=== PATIENT | female | born 1980 | race Caucasian/White ===

== ENCOUNTER 2019-09-18 14:00 | Inpatient (IN) | payer BC, SELFPAY ==
[2019-09-18 15:33] LABS: #Basophils 0.1 thou/uL (0.0-0.2); #Monocytes 0.8 thou/uL (0.11-0.59); #Neutrophils 13.8 thou/uL (1.40-6.50); %Basophils 0.5 % (0.0-1.0); %Eosinophils 0.2 % (0.0-10.0); %Lymphocytes 11.8 % (21.0-51.0); %Monocytes 4.6 % (0.0-10.0); %Neutrophils 82.8 % (42.0-75.0); Hemoglobin 14.7 g/dL (12.0-16.0); Mean Corpuscular HGB CONC 34.5 g/dL (32.0-36.0); Mean Corpuscular Hemoglobin 32.1 pg (27.0-31.0); Mean Corpuscular Volume 93.3 fL (78.0-98.0); Mean Platelet Volume 6.8 fL (7.4-10.4); Platelet Count 267 thou/uL (130-400); RBC Distribution Width 11.9 % (11.5-14.5); Red Blood Cell (RBC) Count 4.58 mill/uL (4.20-5.40); White Blood Cell (WBC) Count 16.6 thou/uL (4.8-10.8)
[2019-09-18 15:54] LABS: Bilirubin Negative (Negative); Blood, Urine Negative (Negative); Clarity Clear (Clear); Glucose, Urine (Dipstick) Normal (Negative); Leukocyte Negative Leu/uL (Negative); Nitrite Negative (Negative); Protein, Urine (Dipstick) Negative (Neg-Trace); Urobilinogen Normal mg/dL (Less than 2)
[2019-09-18] MEDS ORDERED: Acetaminophen 500 MG TAB ONE (15:57)
[2019-09-18] MEDS ORDERED: diphenhydrAMINE 50 MG/ML VIAL ONE (15:57)
[2019-09-18 15:58] LABS: ALT (SGPT) 16 U/L (8-55); AST (SGOT) 13 U/L (5-34); Albumin 3.8 g/dL (3.5-5.0); Alkaline Phosphatase 42 U/L (40-110); Anion Gap 14 mmol/L (10-20); BUN (Urea Nitrogen) 12 mg/dL (7.0-18.7); Bilirubin, Total 0.2 mg/dL (0.2-1.2); Calc. Creatinine Clearance 0 mL/min (70-130); Calcium 9.4 mg/dL (7.8-10.44); Carbon Dioxide 23 mmol/L (22-29); Chloride 108 mmol/L (98-107); Estimated GFR-MDRD 85; Globulin 2.2 g/dL (2.4-3.5); Glucose 103 mg/dL (70-105); Potassium 4.5 mmol/L (3.5-5.1); Sodium 140 mmol/L (136-145)
[2019-09-18] MEDS ORDERED: Prochlorperazine 10 MG/2 ML VIAL IVP SCH (16:15)
--- NOTE | 2019-09-18 16:51 | CT ---
EXAM: Brain CTWithout contrast: HISTORY: Frontal headache nausea vomiting and blurry vision COMPARISON: 11/28/2017 FINDINGS: No focal mass or midline shift. No intra or extra-axial hemorrhage. Sinuses and mastoids are clear of acute process. IMPRESSION: No mass or bleed or other significant acute intracranial process. Stable exam.
[2019-09-18] MEDS ORDERED: Midazolam HCl 2 mg/2 ml Vial ONE (17:28)
[2019-09-18] MEDS ORDERED: Ondansetron PF 4 MG/2 ML Vial ONE ×2 (17:28→20:08)
[2019-09-18 18:54] LABS: Color Of CSF Supernatant COLORLESS (Colorless); Unspun CSF Color COLORLESS (Colorless)
[2019-09-18 18:55] LABS: Tube # 1
[2019-09-18 18:56] LABS: CSF Source CSF; Clarity Clear (Clear); Tube # 2
[2019-09-18 19:04] LABS: CSF Source CSF; Clarity Clear (Clear); Tube # 4
[2019-09-18 19:09] LABS: CSF, Glucose 70 mg/dl (40-70); CSF, Protein 60 mg/dL (15-40)
[2019-09-18] MEDS ORDERED: AcetaZOLAMIDE 250 MG TAB PO SCH (19:30)
[2019-09-18] MEDS ORDERED: Ketorolac Tromethamine 30 MG/ML VIAL ONE (20:08)
[2019-09-18] MEDS ORDERED: Ondansetron PF 4 MG/2 ML Vial IVP PRN ×2 (21:36→22:04)
[2019-09-18] MEDS ORDERED: Ondansetron ODT 4 MG TAB SL PRN (21:36)
[2019-09-18] MEDS ORDERED: Acetaminophen 325 MG TAB PO PRN (21:36)
[2019-09-18] MEDS ORDERED: Ondansetron ODT 4 MG TAB PO PRN (22:04)
[2019-09-18] MEDS: HYDROcodone/Acetaminophen 5/325 mg Tablet PO PRN (23:27)
[2019-09-19] MEDS: Nicotine 14 MG PATCH TD PRN ×2 (00:04→15:17)
[2019-09-19] MEDS: HYDROcodone/Acetaminophen 5/325 mg Tablet PO PRN ×2 (03:59→08:46)
[2019-09-19] MEDS: Acetaminophen 325 MG TAB PO PRN ×2 (08:45→13:50)
[2019-09-19] MEDS: clonazePAM 1 MG TAB PO SCH ×3 (08:46→20:34)
[2019-09-19] MEDS: lamoTRIgine 100 MG TAB PO SCH ×3 (08:47→20:35)
[2019-09-19] MEDS ORDERED: Metoclopramide HCl 10 MG/2 ML VIAL IVP SCH (10:15)
[2019-09-19] MEDS: AcetaZOLAMIDE 250 MG TAB PO SCH ×3 (10:47→20:35)
--- NOTE | 2019-09-19 10:50 | CON ---
DATE OF CONSULTATION: 09/19/2019 CONSULTING PHYSICIAN: Hospitalist Service. IMPRESSION: 1. Chronic migraines. 2. Questionable pseudotumor cerebri with insignificantly elevated pressure of 25. PLAN: 1. Lucas protocol. 2. Diamox 250 mg three times a day. 3. Ophthalmology evaluation next week and determine whether Diamox is necessary. HISTORY OF PRESENT ILLNESS: Ms. Atnhony is a 39-year-old woman with a past history of chronic migraines and bipolar disorder. She presented to [facility] with a persistent headache that had been going on for [address] scan of the brain was unremarkable. She had a lumbar puncture done, which showed an opening pressure of 25 cm of water. She was given the migraine protocol, but did not respond to it. She does not report any transient vision loss. She does complain of photophobia and sonophobia. She has been having some episodic nausea and vomiting as well. She took Tylenol prior to her admission. She has not ever taken any prescription migraine medications. PAST MEDICAL HISTORY: As listed above. ALLERGIES: NONE REPORTED. SOCIAL HISTORY: Unremarkable. FAMILY HISTORY: Unremarkable. REVIEW OF SYSTEMS: Ten-system review of systems is otherwise negative. PHYSICAL EXAMINATION: GENERAL: She is a slightly overweight middle-aged woman, who appears to be in mild discomfort. HEENT: Pupils are 3 mm and reactive. Funduscopic exam was attempted, but clear view of the optic nerve could not be obtained. Conjunctivae are clear. Oropharynx clear. NECK: Supple. EXTREMITIES: No cyanosis or edema. NEUROLOGIC: She is alert and appropriate. Her speech is fluent and clear. She has no focal deficits. No abnormal movements are present. LABORATORY STUDIES: Unremarkable. SUMMARY: This is a middle-aged woman with history of chronic migraines. She has had a persistent headache with nausea, vomiting, light and sound sensitivity more consistent with a migraine, then what would be a typical presentation for pseudotumor cerebri. Opening pressure of 25 is not significantly elevated. It can be seen under is under stress and duress. Apparently, it was difficult for her to be tapped. I will continue Diamox for now and treat her as a migraine. Job ID: [id number]
[2019-09-19] MEDS ORDERED: Sodium Chloride 0.9% 10 ML ONE (10:53)
[2019-09-19] MEDS: Dihydroergotamine Mesylate 1 MG/ML AMP SLOW IVP PRN ×3 (11:05→23:11)
[2019-09-19] MEDS ORDERED: Lorazepam 0.5 MG TAB PO PRN (11:28)
--- NOTE | 2019-09-19 13:08 | HP ---
PRIMARY CARE PROVIDER: Dr. Astrid Tee. CHIEF COMPLAINT: Headache. HISTORY OF PRESENT ILLNESS: Ms. Anthony is a pleasant 39-year-old lady who was seen at [facility] on September 19, 2019. She reports having headaches over the last one week. She also reports having headaches approximately 5 years ago after she received what appears to be intrathecal steroids. She required a blood patch at that time. Over the last week, she has had headache, frontal, radiating to occiput and down her neck, sharp, constant, 8/10 at its worst, accompanied by photophobia and phonophobia as well as blurry vision. She cannot recall any aggravating factors, but she had relief following lumbar puncture in the emergency room. She denies any vomiting. She denies any abdominal pain. She denies any weakness. REVIEW OF SYSTEMS: All systems were reviewed and found to be negative except for the pertinent positives mentioned above. PAST MEDICAL HISTORY: Hemochromatosis, chronic back and neck pain, migraine headaches. PAST SURGICAL HISTORY: Skin tumor removal, hysterectomy, and bone spur surgery. PSYCHIATRIC HISTORY: Bipolar disorder, ADHD, and PTSD. SOCIAL HISTORY: The patient smokes half a pack of cigarettes a day. She drinks alcohol occasionally. She denies recreational drug use. FAMILY HISTORY: Hypertension in her father and heart murmur in her brother. ALLERGIES: SULFA. CURRENT MEDICATIONS: 1. Aripiprazole 15 mg in the evening. 2. Buprenorphine/naloxone 8/2 mg sublingual film half dose three times a day. 3. Clonazepam 2 mg three times a day. 4. Lamotrigine 200 mg three times a day. 5. Prazosin 2 mg every evening. PHYSICAL EXAMINATION: GENERAL: On examination, Ms. Anthony is awake and alert, not in acute distress. She is obese, with a BMI of 35.3. VITAL SIGNS: Blood pressure is 121/71, pulse 60, respiratory rate 16, and oxygen saturation 94% on room air. She is afebrile. EYES: No scleral icterus. No conjunctival pallor. ENT: Moist mucosal membranes. No oropharyngeal erythema or exudates. NECK: Supple and nontender. Trachea is midline. RESPIRATORY: Accessory muscles of breathing are not active. Chest wall movements are symmetric bilaterally. LUNGS: Clear to auscultation without wheeze, rhonchi, or crepitations. CARDIOVASCULAR: S1 and S2 are heard, regular. Peripheral pulses palpable. ABDOMEN: Soft and nontender. Bowel sounds are heard. NEUROLOGIC: Cranial nerves 2 through 12 are intact. No focal motor or sensory deficits. Deep tendon reflexes 2+, plantars downgoing bilaterally. MUSCULOSKELETAL: Power is 5/5 in all 4 extremities. SKIN: No rashes. LYMPHATIC: No cervical lymphadenopathy. PSYCHIATRIC: Normal mood and normal affect. The patient is oriented to person, place, and time. LABORATORY DATA: Ms. Anthony's labs and investigations were reviewed. Noncontrast CT scan of the brain did not show any acute intracranial abnormality. She has leukocytosis with 16,600 white cells, of which 82.8% are neutrophils. Hemoglobin and platelet count are normal. Comprehensive metabolic profile is unremarkable. Urinalysis is negative for nitrite and leukocyte esterase. CSF studies are unremarkable. ASSESSMENT AND PLAN: Ms. Anthony is a pleasant 39-year-old lady who was seen at [facility] on September 19, 2019. Her problem list includes: 1. Intractable headache: Ms. Anthony is presenting with intractable headache that improved following lumbar puncture, raising the possibility of idiopathic intracranial hypertension. She has been started on Diamox. Alternatively, she could be having a variant of migraine. She is being treated with medications for migraine as well. I will obtain MRI of the brain to rule out any intracranial abnormality as the etiology for new onset intractable headache. 2. Attention deficit hyperactivity disorder: Continue home medications. Many thanks for allowing me to participate in your patient's care. Please feel free to contact me with any questions or concerns. LEVEL OF RISK: Moderate. LEVEL OF COMPLEXITY: Moderate. Job ID: [id number]
--- NOTE | 2019-09-19 13:47 | MRI ---
EXAM: Brain MRI Without contrast: HISTORY: Frontal headache, nausea and vomiting, blurred vision COMPARISON: Head CT 09/18/2019 FINDINGS: Multiplanar multisequence MRI examination of the brain is performed. The ventricles are within normal limits of size shape and position. No mass or midline shift. No evidence for intra or extra-axial hemorrhage. No evidence for abnormal restricted diffusion. No evidence for acute infarct. Normal-appearing flow voids are noted. The extracranial soft tissues and calvarial marrow signal appear within normal limits. Visualized sinuses and mastoids are unremarkable. IMPRESSION: No significant acute intracranial process. No mass or bleed. No acute infarct.
[2019-09-19] MEDS: Buprenorphine 8mg/Naloxone 2mg per 1 FILM PO SCH ×2 (15:31→20:36)
--- NOTE | 2019-09-19 16:09 | PDOC.BPN ---
- Brief Progress Note Received call from Dr. Meneses with [facility] to let us know that patient is being seen by Dr. Tee who we admit for. Since he had already seen patient it was decided H&P would be done by [facility] with a transfer of care to our service tomorrow.
[2019-09-19] MEDS: Metoclopramide HCl 10 MG/2 ML VIAL IVP PRN ×2 (17:01→23:11)
[2019-09-19] MEDS: Prazosin HCl 1 MG CAP PO SCH (20:35)
[2019-09-19] MEDS: Aripiprazole 15 MG TAB PO SCH (20:35)
[2019-09-19] MEDS ORDERED: Buprenorphine 8mg/Naloxone 2mg per 1 FILM PO SCH (21:00)
[2019-09-20] MEDS: Dihydroergotamine Mesylate 1 MG/ML AMP SLOW IVP PRN ×3 (05:34→20:38)
[2019-09-20] MEDS: Metoclopramide HCl 10 MG/2 ML VIAL IVP PRN ×3 (05:34→20:38)
[2019-09-20 06:40] LABS: Anion Gap 13 mmol/L (10-20); BUN (Urea Nitrogen) 13 mg/dL (7.0-18.7); Calc. Creatinine Clearance 100 mL/min (70-130); Calcium 9.2 mg/dL (7.8-10.44); Carbon Dioxide 24 mmol/L (22-29); Chloride 108 mmol/L (98-107); Estimated GFR-MDRD 50; Glucose 83 mg/dL (70-105); Potassium 5.6 mmol/L (3.5-5.1); Sodium 139 mmol/L (136-145)
--- NOTE | 2019-09-20 06:49 | PDOC.FM ---
- Subjective Subjective: NAEO. Patient resting comfortably in bed. States that her headache has improved some. She states that about 2 hours after the medication, her headache returns, but it is more tolerable than before. Patient denies any spots in vision, NVD, weakness. Endorses blurry vision that has persisted since onset of her headache. - Objective MAR Reviewed: Yes Vital Signs & Weight: Vital Signs (12 hours) Temp Pulse Resp BP Pulse Ox 09/20/19 04:00 97.7 F 64 16 125/85 97 09/20/19 00:00 98.8 F 61 16 123/64 97 09/19/19 20:00 98.8 F 59 L 16 122/64 95 Weight Weight 102.1 kg I&O: 09/18/19 09/19/19 09/20/19 06:59 06:59 06:59 Intake Total 960 Balance 960 Result Diagrams: 09/20/19 07:28 09/20/19 05:57 Phys Exam - Physical Examination Constitutional: NAD HEENT: PERRLA, moist MMs, sclera anicteric Neck: supple, full ROM Respiratory: clear to auscultation bilateral Cardiovascular: RRR, no significant murmur, no rub Gastrointestinal: soft, non-tender, no distention, positive bowel sounds Musculoskeletal: no edema Neurological: non-focal Psychiatric: normal affect, A&O x 3 Skin: no rash, normal turgor, cap refill <2 seconds Dx/Plan (1) ADHD Status: Acute (2) Intractable headache Code(s): R51 - HEADACHE Status: Acute - Plan Plan: Intractable Headache vs IIH Pt with hx of classic migraine symptoms, but relief after lumbar puncture clouding picture. - Neurology consulted - recommended to treat as a migraine. Optho consulted - pt to follow up outpatient. - Continue diamox and migraine protocol - MRI/CT brain showing no abnormality - LP with nml opening pressure, pending cx results of CSF Hyperkalemia K 5.6 this AM, unsure etiology. - EKG pending - Will repeat lab, can consider lasix if still elevated. ADHD, stable - Continue home meds Bipolar disorder and PTSD, stable - Continue home meds Tobacco use Smokes 1/2pack/day - Nicotine patch; agency legal counsel on cessation Code: Full Diet: Reg Dispo: likely dc in next 1-2 days Case discussed with Dr. Pettit
[2019-09-20 07:59] LABS: #Basophils 0.1 thou/uL (0.0-0.2); #Eosinphils 0.3 thou/uL (0.0-0.7); #Lymphocytes 4.8 thou/uL (1.20-3.40); #Monocytes 0.7 thou/uL (0.11-0.59); #Neutrophils 5.1 thou/uL (1.40-6.50); %Basophils 1.2 % (0.0-1.0); %Eosinophils 2.3 % (0.0-10.0); %Lymphocytes 43.6 % (21.0-51.0); %Monocytes 6.5 % (0.0-10.0); %Neutrophils 46.3 % (42.0-75.0); Hemoglobin 14.6 g/dL (12.0-16.0); Mean Corpuscular HGB CONC 35.1 g/dL (32.0-36.0); Mean Corpuscular Hemoglobin 32.9 pg (27.0-31.0); Mean Corpuscular Volume 93.6 fL (78.0-98.0); Mean Platelet Volume 7.3 fL (7.4-10.4); Platelet Count 216 thou/uL (130-400); RBC Distribution Width 12.3 % (11.5-14.5); Red Blood Cell (RBC) Count 4.46 mill/uL (4.20-5.40); White Blood Cell (WBC) Count 11.1 thou/uL (4.8-10.8)
--- NOTE | 2019-09-20 09:57 | CON ---
DATE OF CONSULTATION: TIME OF CONSULTATION: REASON FOR CONSULTATION: Blurry vision and headache. HISTORY OF PRESENT ILLNESS: The patient is a 39-year-old woman who has history of severe headaches at 6 years of age, these were prodromal symptoms, but were associated with photophobia and sonophobia. These have continued through life and jlater associated with menstrual cycle. This was part of the reason for ultimately a hysterectomy, which did decrease the frequency of headaches. However, , she did develop a headache, which has persisted. She was seen in the [facility] and CT exam was normal and water. Headache was unrelieved with migraine protocol and she was transferred to [facility]. She had LASIK 10 years previously and had not needed glasses since that time. She difficult vision at this time. On examination, visual acuity is J-10 each eye, both without correction and +2.00 diopter lenses. With confrontation visual field saw a questionable right superior quadrantanopsia of each eye. Intra-ocular pressure with Kyrie-Pen was 18 mmHg in each eye. The pupils were about 3 mm and equal and reactive to light, afferent defect. . The pupils were dilated with Mydriacyl and Christiano-Synephrine drops. On dilation exam, were flat with cup/disk ratio. She had persistent tiny ocular movements, which sensations, but . There were no retinal hemorrhages, edema. Vessels were patent. was flat and intact. CT done previously MR contrast done today were normal. IMPRESSION: History of headaches occurring photo and sonophobia, suggest a migraine, although classic with the prodromal symptoms. reduced visual acuity and questionable right upper homonymous quadrantanopsia, may need further evaluation. With the normal CT and MRI no concern for actual structural intracranial abnormality. PLAN: I will ask her to be seen in the office for more formal visual field examination and evaluation . Job ID: [id number]
[2019-09-20] MEDS: AcetaZOLAMIDE 250 MG TAB PO SCH ×3 (10:18→20:40)
[2019-09-20] MEDS: Enoxaparin Sodium 40 MG/0.4 ML SYRINGE SC SCH (10:21)
[2019-09-20] MEDS: lamoTRIgine 100 MG TAB PO SCH ×3 (10:21→20:41)
[2019-09-20] MEDS: clonazePAM 1 MG TAB PO SCH ×3 (10:22→20:43)
[2019-09-20] MEDS: Buprenorphine 8mg/Naloxone 2mg per 1 FILM PO SCH ×4 (10:23→20:42)
--- NOTE | 2019-09-20 11:21 | PRG ---
DATE OF SERVICE: 09/20/2019 ADDENDUM: This is an addendum to the note of Dr. Devorah Baca. Ms. Anthony is a very pleasant 39-year-old lady who was admitted with intractable migraine headache. She has been seen in consult by Dr. Tony Joseph and we appreciate his input. Ms. Anthony's headache is better this morning, though still present. It may be a good idea to place her on a medication for prophylaxis such as Topamax at bedtime. It would perhaps be a good idea to also give her medications more specific for migraine headache upon discharge. In the event, clinically, she is improved today. Her MRI was normal. Job ID: [id number]
[2019-09-20 11:47] LABS: Anion Gap 11 mmol/L (10-20); BUN (Urea Nitrogen) 12 mg/dL (7.0-18.7); Calc. Creatinine Clearance 127 mL/min (70-130); Calcium 9.1 mg/dL (7.8-10.44); Carbon Dioxide 20 mmol/L (22-29); Chloride 110 mmol/L (98-107); Estimated GFR-MDRD 66; Glucose 91 mg/dL (70-105); Potassium 4.4 mmol/L (3.5-5.1); Sodium 137 mmol/L (136-145)
[2019-09-20] MEDS ORDERED: SUMAtriptan Succinate 50 MG TAB PO PRN (12:38)
--- NOTE | 2019-09-20 16:30 | EKG ---
Test Reason : Blood Pressure : / mmHG Vent. Rate : 058 BPM Atrial Rate : 058 BPM P-R Int : 156 ms QRS Dur : 092 ms QT Int : 412 ms P-R-T Axes : 045 063 053 degrees QTc Int : 404 ms Sinus bradycardia Otherwise normal ECG No previous ECGs available Confirmed by DR. Quin HOLLINS ([id number]) on 09/20/2019 4:29:48 PM Referred By: Nadira DukeR Confirmed By:DR. Quin HOLLINS
[2019-09-20] MEDS: Nicotine 14 MG PATCH TD PRN (18:20)
[2019-09-20] MEDS: Prazosin HCl 1 MG CAP PO SCH (20:39)
[2019-09-20] MEDS: Aripiprazole 15 MG TAB PO SCH (20:40)
[2019-09-20] MEDS: Topiramate 25 MG TAB PO SCH (20:40)
[2019-09-20] MEDS ORDERED: Topiramate 25 MG TAB PO SCH (21:00)
[2019-09-21] MEDS: Metoclopramide HCl 10 MG/2 ML VIAL IVP PRN (05:12)
[2019-09-21] MEDS: Dihydroergotamine Mesylate 1 MG/ML AMP SLOW IVP PRN (05:12)
--- NOTE | 2019-09-21 06:53 | PDOC.FM ---
- Subjective Subjective: NAEO. Patient resting comfortably in bed this AM. She states that her headache is much improved as compared to when she came in. She denies any changes in vision, NVD, chest pain, SOB. Tolerating PO. - Objective MAR Reviewed: Yes Vital Signs & Weight: Vital Signs (12 hours) Temp Pulse Resp BP Pulse Ox 09/21/19 04:00 98.6 F 63 16 107/61 94 L 09/21/19 00:00 98.2 F 62 16 106/58 L 98 09/20/19 19:35 99.0 F 64 16 122/60 95 Weight Weight 102.1 kg I&O: 09/19/19 09/20/19 09/21/19 06:59 06:59 06:59 Intake Total 960 Balance 960 Result Diagrams: 09/20/19 07:28 09/20/19 11:22 Phys Exam - Physical Examination Constitutional: NAD HEENT: PERRLA, moist MMs, sclera anicteric Neck: supple, full ROM Respiratory: clear to auscultation bilateral Cardiovascular: RRR, no significant murmur, no rub Gastrointestinal: soft, non-tender, no distention, positive bowel sounds Musculoskeletal: no edema Neurological: non-focal, normal sensation, moves all 4 limbs Psychiatric: normal affect Skin: no rash, normal turgor, cap refill <2 seconds Dx/Plan (1) ADHD Status: Acute (2) Intractable headache Code(s): R51 - HEADACHE Status: Acute - Plan Plan: Intractable Headache vs IIH Pt with hx of classic migraine symptoms, but relief after lumbar puncture clouding picture. - Neurology consulted - recommended to treat as a migraine. Optho consulted - pt to follow up outpatient. - Continue diamox and migraine protocol. Patient is to stay on diamox until she can be further evaluated by optho in 1 week. Topamax and triptan added to patient's regimen which she can continue outpatient. - MRI/CT brain showing no abnormality - LP with nml opening pressure, CSF cx NGTD Hyperkalemia, resolved K 5.6 this AM, unsure etiology. - EKG nml, repeat lab with K 4.1. ADHD, stable - Continue home meds Bipolar disorder and PTSD, stable - Continue home meds Tobacco use Smokes 1/2pack/day - Nicotine patch; deputy county counsel on cessation Code: Full Diet: Reg Dispo: dc today Case discussed with Dr. Pettit
[2019-09-21 07:48] VITALS: BP 109/54; TEMP 99.1
[2019-09-21] MEDS: AcetaZOLAMIDE 250 MG TAB PO SCH (09:17)
[2019-09-21] MEDS: Enoxaparin Sodium 40 MG/0.4 ML SYRINGE SC SCH (09:18)
[2019-09-21] MEDS: clonazePAM 1 MG TAB PO SCH (09:18)
[2019-09-21] MEDS: lamoTRIgine 100 MG TAB PO SCH (09:19)
[2019-09-21] MEDS: Buprenorphine 8mg/Naloxone 2mg per 1 FILM PO SCH (09:20)
[2019-09-21] MEDS: Topiramate 25 MG TAB PO SCH (10:34)
--- NOTE | 2019-09-21 10:43 | PRG ---
DATE OF SERVICE: 09/21/2019 ADDENDUM: Please add this as an addendum to the note of Dr. Devorah Baca. Ms. Anthony is much better this morning. She only has a very slight headache. She has been given instructions in the use of her Triptan as well as basic [id number] medications like Excedrin Migraine. We have added Topamax for headache prophylaxis. She will be discharged today to follow up with Dr. Celis. He will further investigate for any evidence of papilledema associated with intracranial hypertension. At that time, a decision will be made whether or not, she needs to continue the Diamox. Job ID: [id number]
--- NOTE | 2019-09-21 12:54 | CON ---
DATE OF CONSULTATION: 09/19/2019 TIME OF CONSULTATION: 4:00 p.m. REASON FOR CONSULTATION: Blurry vision and headache. HISTORY OF PRESENT ILLNESS: The patient is a 39-year-old woman, who has history of severe headaches beginning at [age] years of age. There are no prodromal symptoms, but were associated with photophobia and sonophobia. These have continued through her life and were later associated with her menstrual cycle. This was part of the reason for ultimately having a hysterectomy, which did decrease the frequency of the headaches. However, about one week previously, she did develop a headache which has persisted and is quite severe. She was seen in the [facility] and CT exam was normal and a spinal tap showed CSF opening pressure of 25 cm of water. The headache was unrelieved with migraine protocol and she was transferred to [facility]. She had LASIK 10 years previously and is not needing glasses since that time. She is not having difficulty with near vision at this time. On examination, visual acuity is J-10 each eye, both without correction and with a +2.00 diopter lens. 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 Intraocular pressure with a Kyrie-Pen was 18 mmHg in each eye. The pupils were about 3 mm and equal and reactive to light, without an afferent defect. The pupils were dilated with Mydriacyl and Christiano-Synephrine drops. On dilated exam, both disks were flat with a 0.4 cup/disk ratio. She had persistent tiny ocular movements, which made visualization of spontaneous venous pulsations difficult, but these did seem to be present in the left eye. There were no retinal hemorrhages or edema. The vessels were patent and intact. The peripheral retina was flat and intact. CT done previously and MRI done today were normal. IMPRESSION: History of headaches occurring with photophobia and sonophobia suggest a migraine headache, although not classic with the prodromal symptoms. Reduced visual acuity and questionable right upper homonymous quadrantanopsia, may need further evaluation. With the normal CT and MRI, there is minimal concern for actual structural intracranial abnormality. PLAN: I will ask her to be seen in the office for more formal visual field examination and evaluation of best corrected visual acuity after discharge. Job ID: [id number]
--- NOTE | 2019-09-22 13:52 | DIS ---
DATE OF ADMISSION: 09/18/2019 DATE OF DISCHARGE: 09/21/2019 RESIDENT: Devorah Baca MD ADMITTING ATTENDING: Nacho Ware MD DISCHARGE ATTENDING: Yaakov Pettit MD CONSULTS: Neurology and Ophthalmology. PROCEDURES PERFORMED: 1. Brain CT on 09/18/2019, showing no mass or bleed or other intracranial process. 2. Brain MRI on 09/19/2019, showing no acute intracranial process or infarct. DISCHARGE MEDICATIONS: 1. Tylenol 650 mg oral every 4 hours as needed. 2. Diamox 250 mg oral 3 times daily. 3. Sumatriptan 50 mg oral as needed. 4. Topamax 50 mg oral twice daily. 5. Clonazepam 2 mg oral 3 times daily. 6. Prazosin 2 mg oral every evening. 7. Lamotrigine 200 mg oral 3 times daily. 9. Aripiprazole 15 mg oral every evening. DISCONTINUED MEDICATIONS: None. PRIMARY DIAGNOSES: Intractable headache, hyperkalemia-resolved. SECONDARY DIAGNOSES: Attention deficit hyperactivity disorder, bipolar disorder , post-traumatic stress disorder, tobacco use. HISTORY OF PRESENT ILLNESS/HOSPITAL COURSE: This is a 39-year-old female, who presented to the ER with headaches over the last one week. She also reported having headaches about five years ago after which she received possibly intrathecal steroids, as well as a blood patch at that time. The patient described her headache as frontal, radiating to the back of her head and down her neck, sharp that was constant, 8/10 pain. She did endorse some photophobia, as well as phonophobia and blurry vision. She states that she has been under a lot of stress lately that could also be contributing. The patient was admitted to the stroke floor for further workup. The patient's labs were significant for an elevated white blood count of 16.6 and elevated neutrophils. Otherwise, labs were unremarkable. Imaging did not reveal anything. The patient did have an LP that showed protein of 60. The patient did have some mild relief with LP, which led to the possibility of her having pseudotumor cerebri. Her presentation was unlikely to be this. Neurology was consulted, who recommended to treat her as a migraine. The patient was started on Diamox. Ophthalmology was consulted to rule out papilledema. The patient will need to follow up with Ophthalmology outpatient to have a better exam of the eye. The patient did report improvement of her headache by the end of her stay. The patient was started on Topamax for migraine prevention as well as a triptan abortive to use in the outpatient setting. The patient is agreeable to this plan. DISPOSITION: Stable. DISCHARGE INSTRUCTIONS: 1. Location: Home. 2. Diet: Regular. 3. Activity: Ad faiza. 4. Followup: Follow up with PCP, Dr. Astrid Tee, within 7 days[address] Follow up with Dr. Cal Celis, Ophthalmology, in 7 days. Job ID: [id number] [facility]
== END 2019-09-21 10:37 | disposition home or self-care (01) | DRG 103 ==
LOC: ERS 14:00 → 3SE 20:56
PROVIDERS: ADMIT Internal Medicine; ATTEND Family Medicine
PROC: 009U3ZX Drainage of Spinal Canal, Percutaneous Approach, Diagnostic (ICD-10-PCS; principal; 2019-09-18)
DX: G93.2 Benign intracranial hypertension (principal); G43.919 Migraine, unspecified, intractable, without status migrainosus; E83.119 Hemochromatosis, unspecified; F31.9 Bipolar disorder, unspecified; F90.9 Attention-deficit hyperactivity disorder, unspecified type; F43.10 Post-traumatic stress disorder, unspecified; G89.29 Other chronic pain; M54.9 Dorsalgia, unspecified; M54.2 Cervicalgia; F17.210 Nicotine dependence, cigarettes, uncomplicated; E87.5 Hyperkalemia; Z88.2 Allergy status to sulfonamides; Z90.710 Acquired absence of both cervix and uterus; Z91.012 Allergy to eggs; Z79.899 Other long term (current) drug therapy
CPT/HCPCS: 36415; 36416; 70450; 70551; 80048; 80053; 81003; 82945; 84157; 85025; 87070; 87205; 89051; 93005; 93010; J0780; J1110; J1200; J1650; J1885; J2250; J2405; J2765

== ENCOUNTER 2019-09-25 00:28 | Observation (INO) | payer BC ==
[2019-09-25] MEDS ORDERED: Metoclopramide HCl 10 MG/2 ML VIAL ONE (02:38)
[2019-09-25] MEDS ORDERED: Acetaminophen 500 MG TAB ONE (02:38)
[2019-09-25] MEDS ORDERED: diphenhydrAMINE 50 MG/ML VIAL ONE (02:38)
[2019-09-25 03:06] LABS: #Basophils 0.1 thou/uL (0.0-0.2); #Eosinphils 0.4 thou/uL (0.0-0.7); #Lymphocytes 3.8 thou/uL (1.20-3.40); #Monocytes 0.6 thou/uL (0.11-0.59); #Neutrophils 6.2 thou/uL (1.40-6.50); %Eosinophils 3.5 % (0.0-10.0); %Lymphocytes 34.6 % (21.0-51.0); %Monocytes 5.2 % (0.0-10.0); %Neutrophils 55.6 % (42.0-75.0); Hemoglobin 14.9 g/dL (12.0-16.0); Mean Corpuscular HGB CONC 34.4 g/dL (32.0-36.0); Mean Corpuscular Hemoglobin 32.2 pg (27.0-31.0); Mean Corpuscular Volume 93.5 fL (78.0-98.0); Mean Platelet Volume 6.7 fL (7.4-10.4); Platelet Count 271 thou/uL (130-400); RBC Distribution Width 12.3 % (11.5-14.5); Red Blood Cell (RBC) Count 4.64 mill/uL (4.20-5.40); White Blood Cell (WBC) Count 11.1 thou/uL (4.8-10.8)
[2019-09-25 03:28] LABS: ALT (SGPT) 28 U/L (8-55); AST (SGOT) 19 U/L (5-34); Albumin 3.8 g/dL (3.5-5.0); Alkaline Phosphatase 42 U/L (40-110); Anion Gap 11 mmol/L (10-20); BUN (Urea Nitrogen) 26 mg/dL (7.0-18.7); Bilirubin, Total 0.2 mg/dL (0.2-1.2); Calc. Creatinine Clearance 0 mL/min (70-130); Calcium 9.1 mg/dL (7.8-10.44); Carbon Dioxide 20 mmol/L (22-29); Chloride 111 mmol/L (98-107); Estimated GFR-MDRD 53; Globulin 2.5 g/dL (2.4-3.5); Glucose 91 mg/dL (70-105); Potassium 4.3 mmol/L (3.5-5.1); Protein, Total 6.3 g/dL (6.0-8.3); Sodium 138 mmol/L (136-145)
[2019-09-25] MEDS ORDERED: Magnesium 2 GM/50 ML BAG (IN WATER) ONE (03:51)
[2019-09-25] MEDS ORDERED: Ketorolac Tromethamine 30 MG/ML VIAL ONE (05:08)
--- NOTE | 2019-09-25 06:13 | PDOC.FPRHP ---
- History of Present Illness Chief Complaint: Migraines History of Present Illness: Patient is a 39 yo female who presents with c/o a migraine headache for the past 2 weeks. Patient was recently admitted to hospital for 4 days for similar symptoms. She had 3x LP's in ED last visit. She has also visited the ER 2 other times in the past week for headache symptoms. She was started on Diamox & Topamax at her last admission. She was seen by neuro who said her last admission was a migraine. Today pt states headache pain is on left side with additional symptoms of photophobia and phonophobia. Reports MAN did not improve upon leaving last ED visit yesterday in [place]. Pt reports migraines in the past that started before a hysterectomy at age 22. Patient has been taking approximately 1000 mg of Ibuprofen every 4 hours for the last several days to try to relieve Headache pain, she says she takes Tylenol in between Ibuprofen doses. Patient additionally complains of a fever on and off for 1 week (TMax of 100.2F yesterday) and chills. Denies diarrhea, cough, nasal drainage. Reports chronic head and back pain. ED Course: Given Ketorolac 30 mg, Benadryl 25 mg, 1L NS, Metoclopramide 10 mg, 2g Mag sulfate, 1000 mg Tylenol. Patient states headache still present. - Allergies/Adverse Reactions Allergies Allergy/AdvReac Type Severity Reaction Status Date / Time Sulfa (Sulfonamide Allergy Severe Verified 09/19/19 10:50 Antibiotics) - Home Medications Medication Instructions Recorded Confirmed Type ARIPiprazole [Aripiprazole] 15 mg PO QPM 09/18/19 09/18/19 History Buprenorphine HCl/Naloxone HCl 0.5 each PO TID 09/18/19 09/19/19 History [Buprenorp-Nalox 8-2 mg Sl Film] Lamotrigine [lamoTRIgine] 200 mg PO TID 09/18/19 09/18/19 History Prazosin HCl 2 mg PO QPM 09/18/19 09/18/19 History clonazePAM [Clonazepam] 2 mg PO TID 09/18/19 09/18/19 History AcetaZOLAMIDE [Diamox] 250 mg PO TID #30 tab 09/21/19 Rx Acetaminophen [Tylenol Regular 650 mg PO Q4H PRN tab 09/21/19 Rx Strength] SUMAtriptan Succinate [Imitrex] 50 mg PO PRN PRN #30 tab 09/21/19 Rx Topiramate [Topamax] 50 mg PO BID #90 tab 09/21/19 Rx - History PMHx: ADHD, PTSD, Bipolar, Migraines, Chronic neck & back pain, Hemochromatosis PSHx: hysterectomy, skin tumor removal, bone spur removal, multiple cyst removals FHx: HTN, cancer in father, PGM- migraines, blood clots, breast cancer Social: smokes 1/2 ppd cigarettes x10 yrs, occasional EtOH use Past Hospitalizations: -psych hospitalization -recent hospitalization for intractable MAN - Review of Systems General: denies: fever/chills (Had a temp of 99.9 at home), fatigue Eyes: denies: vision changes ENT: denies: nasal congestion Respiratory: denies: cough, congestion Cardiovascular: denies: chest pain, edema Gastrointestinal: reports: nausea, vomiting, constipation. denies: diarrhea Skin: denies: rashes, lesions Musculoskeletal: reports: pain Neurological: denies: numbness, weakness - Vital signs BP: 130/80 HR: 74 RR: 18 Tmax: 99.0F Pox: 97% on RA Wt: 103 kg - Physical Exam Constitutional: NAD, awake, alert and oriented, well developed HEENT: normocephalic and atraumatic, EOMI, grossly normal vision, grossly normal hearing, MMM Neck: supple, no JVD Chest: no-tender to palpation, no lesions Heart: RRR, normal S1/S2, no murmurs/rubs/gallops, pulses present, no edema Lungs: CTAB, no respiratory distress, good air movement, no rales/rhonchi, no wheezing Abdomen: soft, non-tender, bowel sounds present Musculoskeletal: normal structure, normal tone, ROM grossly normal Neurological: no focal deficit, CN II-XII intact, normal sensation Skin: no rash/lesions, good turgor Heme/Lymphatic: no unusual bruising or bleeding Psychiatric: normal mood and affect, intact recent and remote memory FMR H&P: Results - Labs Result Diagrams: 09/25/19 02:57 09/25/19 02:57 Lab results: WBC 11.1 thou/uL (4.8-10.8) H 09/25/19 02:57 Hgb 14.9 g/dL (12.0-16.0) 09/25/19 02:57 Hct 43.4 % (36.0-47.0) 09/25/19 02:57 MCV 93.5 fL (78.0-98.0) 09/25/19 02:57 Plt Count 271 thou/uL (130-400) 09/25/19 02:57 Neutrophils % 55.6 % (42.0-75.0) 09/25/19 02:57 Sodium 138 mmol/L (136-145) 09/25/19 02:57 Potassium 4.3 mmol/L (3.5-5.1) 09/25/19 02:57 Chloride 111 mmol/L (98-107) H 09/25/19 02:57 Carbon Dioxide 20 mmol/L (22-29) L 09/25/19 02:57 BUN 26 mg/dL (7.0-18.7) H 09/25/19 02:57 Creatinine 1.14 mg/dL (0.6-1.1) H 09/25/19 02:57 Glucose 91 mg/dL (70-105) 09/25/19 02:57 Calcium 9.1 mg/dL (7.8-10.44) 09/25/19 02:57 Total Bilirubin 0.2 mg/dL (0.2-1.2) 09/25/19 02:57 AST 19 U/L (5-34) 09/25/19 02:57 ALT 28 U/L (8-55) 09/25/19 02:57 Alkaline Phosphatase 42 U/L (40-110) 09/25/19 02:57 Serum Total Protein 6.3 g/dL (6.0-8.3) 09/25/19 02:57 Albumin 3.8 g/dL (3.5-5.0) 09/25/19 02:57 - Radiology Interpretation CT scan - head Status: report reviewed by me (no acute pathology) FMR H&P: A/P - Problem List (1) Intractable headache Current Visit: No Status: Acute Code(s): R51 - HEADACHE Qualifiers: Headache type: unspecified Headache chronicity pattern: chronic headache Qualified Code(s): R51 - Headache - Plan Patient is a 39 yo female who presents with migraine headache that has not responded to multiple pain medications in ED: #Intractable Headache vs IIH vs Rebound Headache - Pt with hx of classic migraine symptoms with multiple ER visits - Neurology consulted with last admission 2 weeks ago, recommended migraine tx at that time - Continue diamox and migraine protocol - CT brain showing no abnormality, MRI 2 weeks ago with no abnormality - Taking approx. 6000 mg Ibuprofen daily, could have component of rebound MAN contributing to Migraine - Minimize NSAID and tylenol use #KAMRAN - likely 2/2 dehydration & NSAID use - s/p 1 L NS bolus, continue maintenance IVF LR @ 120 cc/h #ADHD, stable - Continue home meds #Bipolar disorder and PTSD, stable - Continue home meds #Tobacco use -Smokes 1/2pack/day - Nicotine patch; recreation counselor on cessation Diet: Regular VTE: SCDs Code Status: FULL Dispo: Stable, admit to observation on medical unit. Provide pain control. Anticipate LOS <48hrs. FMR H&P: Upper Level - Plan Date/Time: 09/25/19 0611 [place] DO, have evaluated this patient and agree with findings/plan as outlined by auditor internal resident. Pertinent changes/additions are listed here. Pt is a 39 yo F with recent admission on 09/19/19 for intractable MAN attributed to migraine MAN but suspicious for idiopathic intracranial HTN presenting again for intractable MAN, onset 2wks ago. She reports stress exacerbates her migraines and has had recent stress described as---. Has been taking tylenol and ibuprofen for 2 wks. Given toradol 30mg IV, Benadryl 25mg IV, 1L NS, Reglan 10mg IV, Magnesium Sulfate 2g IV, Tylenol 1g PO. VS: BP130/80, P74, R18, T99.0, O297%RA PE: Gen: well developed, NAD HEENT: Moist MM, no LAD, no JVD Heart: RRR, no murmurs or extra sounds. Distal pulses 2+ Lungs: CTAB, no wheezing. No increased work of breathing Abd: soft, nontender, BS+ Ext: no cyanosis or edema Skin: no rashes or wounds present Psych: AOx3, normal mood Pertinent Labs/Imaging: BUN 26, Cr 1.14 CT Head- no acute intracranial Abnormality A/P: Intractable Migraine: -s/p thorough workup at previous admission seen by neuro and optho who believe this to be migraine instead of IIH. -s/p toradol, benadryl, reglan, and tylenol in ED and still sx with 4/10 MAN -Taking above maximum dose of ibuprofen daily, could have component of rebound MAN contributing to Migraine. Minimize NSAID and tylenol use. -Will give Dexamethasone 10mg IV and Sumatriptan. -CT Head negative. No alarm sx on my exam. -continue home abortive sumatriptan and ppx topamax. KAMRAN -s/p 1L NS, continue mIVF See auditor internal note for chronic medical problems. DVT Ppx: Lovenox GI PPx: Pepcid Code status: Full
[2019-09-25] MEDS ORDERED: Ondansetron PF 4 MG/2 ML Vial IVP PRN (07:30)
[2019-09-25] MEDS ORDERED: Calcium Carbonate 500 MG ChewTAB PO PRN (07:30)
[2019-09-25] MEDS ORDERED: Ondansetron ODT 4 MG TAB PO PRN (07:30)
[2019-09-25] MEDS ORDERED: Dexamethasone 10 MG/ML VIAL SLOW IVP SCH ×2 (07:45→11:30)
[2019-09-25] MEDS ORDERED: SUMAtriptan Succinate 25 MG TAB PO SCH ×2 (07:45→11:30)
--- NOTE | 2019-09-25 09:30 | CT ---
PRELIMINARY REPORT/[facility]/EMERGENCY AFTER HOURS PROCEDURE: EXAM: CT Head Without Intravenous Contrast. CLINICAL HISTORY: F39 presents to the ED with c/o a migraine headache for the past 2 weeks. Reports being recently admi tted to hospital for 4 days for symptoms. Pt reports having 3x LP's in ED last visit. Reports left si ded pain of head with c/o of photo and phonophobia. Reports MAN did not improve upon leaving last ED. Pt reports migraines in the past before hysterectomy at age 22 (for 1/2 days). Reports uptake with Ty lenol and muscle relaxer. Reports fever on and off for 1 week (100.2 yest) and chills. Denies diarrhe a. Denies cough, nasal drainage. Denies family hx of blood clots. Reports chronic head and back pain. TECHNIQUE: Axial computed tomography images of the head/brain without intravenous contrast. COMPARISON: None provided. FINDINGS: BRAIN: No acute intraparenchymal hemorrhage. No mass lesion. No CT evidence for acute territorial inf arct. No midline shift or extra-axial collection. VENTRICLES: No hydrocephalus. ORBITS: The orbits are unremarkable. SINUSES AND MASTOIDS: The paranasal sinuses and mastoid air cells are clear. SOFT TISSUES: No significant facial or scalp soft tissue swelling evident. No radiopaque foreign body is seen. BONES: No acute skull fracture. IMPRESSION: No acute intracranial abnormality. ELECTRONICALLY SIGNED BY: Dejon Bailey MD Sep 25, 2019 3:19:56 AM BUILDING MAINTENANCE SUPERINTENDENT This report is intended for review by the ordering physician only, in accordance of law. If you recei ve this report in error, please call [facility] at [phone]. FINAL REPORT CT BRAIN WITHOUT CONTRAST: HISTORY: Headache. COMPARISON: CT brain 1 week prior. FINDINGS/IMPRESSION: Findings and impression are concordant with the preliminary report by [facility]. POS: OFF
[2019-09-25 10:34] VITALS: BMI 37.9
[2019-09-25] MEDS ORDERED: Haloperidol Lactate 5 MG/ML VIAL SLOW IVP SCH (12:15)
[2019-09-25] MEDS: Senokot S 8.6-50 MG TAB PO SCH ×2 (12:31→20:21)
[2019-09-25] MEDS: Lactated Ringer's 1,000 ML IV SCH ×3 (12:31→20:20)
[2019-09-25] MEDS: SUMAtriptan Succinate 50 MG TAB PO PRN ×2 (18:37→20:21)
[2019-09-25] MEDS ORDERED: clonazePAM 0.5 MG TABLET PO SCH (22:00)
[2019-09-25] MEDS ORDERED: lamoTRIgine 100 MG TAB PO SCH (22:00)
[2019-09-25] MEDS ORDERED: Topiramate 100 MG TAB PO SCH (22:00)
[2019-09-25] MEDS ORDERED: AcetaZOLAMIDE 250 MG TAB PO SCH (22:00)
[2019-09-25] MEDS ORDERED: Aripiprazole 15 MG TAB PO SCH (22:00)
[2019-09-25] MEDS ORDERED: Prazosin HCl 1 MG CAP PO SCH (22:00)
[2019-09-26] MEDS: SUMAtriptan Succinate 50 MG TAB PO PRN ×2 (01:14→04:10)
[2019-09-26] MEDS: Lactated Ringer's 1,000 ML IV SCH (04:11)
[2019-09-26 04:48] LABS: #Lymphocytes 2.4 thou/uL (1.20-3.40); #Monocytes 0.4 thou/uL (0.11-0.59); #Neutrophils 11.7 thou/uL (1.40-6.50); %Basophils 0.1 % (0.0-1.0); %Eosinophils 0.3 % (0.0-10.0); %Lymphocytes 16.8 % (21.0-51.0); %Monocytes 2.4 % (0.0-10.0); %Neutrophils 80.4 % (42.0-75.0); Hemoglobin 15.4 g/dL (12.0-16.0); Mean Corpuscular HGB CONC 33.7 g/dL (32.0-36.0); Mean Corpuscular Hemoglobin 32.3 pg (27.0-31.0); Mean Corpuscular Volume 95.8 fL (78.0-98.0); Platelet Count 272 thou/uL (130-400); RBC Distribution Width 12.3 % (11.5-14.5); Red Blood Cell (RBC) Count 4.77 mill/uL (4.20-5.40); White Blood Cell (WBC) Count 14.5 thou/uL (4.8-10.8)
[2019-09-26 05:21] LABS: ALT (SGPT) 28 U/L (8-55); AST (SGOT) 16 U/L (5-34); Alkaline Phosphatase 44 U/L (40-110); Anion Gap 14 mmol/L (10-20); BUN (Urea Nitrogen) 18 mg/dL (7.0-18.7); Bilirubin, Total 0.2 mg/dL (0.2-1.2); Calc. Creatinine Clearance 134 mL/min (70-130); Calcium 9.3 mg/dL (7.8-10.44); Carbon Dioxide 20 mmol/L (22-29); Chloride 111 mmol/L (98-107); Estimated GFR-MDRD 69; Globulin 2.7 g/dL (2.4-3.5); Glucose 132 mg/dL (70-105); Potassium 4.7 mmol/L (3.5-5.1); Protein, Total 6.7 g/dL (6.0-8.3); Sodium 140 mmol/L (136-145)
--- NOTE | 2019-09-26 05:23 | PDOC.FM ---
- Subjective Subjective: Ms. Anthony is doing much better this morning. She states her headache has resolved significantly. She is ready to go home. - Objective MAR Reviewed: Yes Vital Signs & Weight: Vital Signs (12 hours) Temp Pulse Resp BP Pulse Ox 09/26/19 04:10 97.9 F 56 L 16 101/66 96 09/25/19 22:40 98.4 F 60 20 130/61 94 L 09/25/19 19:10 98.5 F 65 16 132/63 95 Weight Weight 103.328 kg I&O: 09/24/19 09/25/19 09/26/19 06:59 06:59 06:59 Intake Total 1200 Balance 1200 Result Diagrams: 09/26/19 04:31 09/26/19 04:31 Phys Exam - Physical Examination Constitutional: NAD HEENT: PERRLA, moist MMs, sclera anicteric Neck: supple, full ROM Respiratory: no wheezing, no rales, no rhonchi, clear to auscultation bilateral Cardiovascular: RRR, no significant murmur, no rub Gastrointestinal: soft, non-tender, no distention Musculoskeletal: no edema, pulses present Neurological: non-focal, moves all 4 limbs Psychiatric: normal affect, A&O x 3 Skin: no rash Dx/Plan (1) KAMRAN (acute kidney injury) Code(s): N17.9 - ACUTE KIDNEY FAILURE, UNSPECIFIED Status: Acute (2) ADHD Status: Acute (3) Intractable headache Code(s): R51 - HEADACHE Status: Acute Qualifiers: Headache type: unspecified Headache chronicity pattern: chronic headache Qualified Code(s): R51 - Headache - Plan Plan: Intractable Headache vs IIH vs Rebound Headache - Pt with hx of classic migraine symptoms with multiple ER visits - Neurology consulted with last admission 2 weeks ago, recommended migraine tx at that time - Continue diamox and migraine protocol - CT brain showing no abnormality, MRI 2 weeks ago with no abnormality Leukocytosis - likely 2/2 steroids KAMRAN, resolved ADHD, stable - aware Bipolar disorder and PTSD, stable - Continue home meds Tobacco use -Smokes 1/2pack/day - Nicotine patch; service counselor on cessation Diet: Regular VTE: SCDs Code Status: FULL Dispo: Stable, admit to observation on medical unit. Provide pain control. Anticipate LOS <48hrs. D/c home today with outpatient f/u. Addendum - Attending - Attending Attestation Date/Time: 09/26/19 [id number] I personally evaluated the patient and discussed the management with Dr. Goff I agree with the History, Examination, Assessment and Plan documented above with any addition or exceptions noted below. patient stable for discharge f/u with Dr Tee.
[2019-09-26 08:21] VITALS: BP 121/61; TEMP 97.8
[2019-09-26] MEDS ORDERED: AcetaZOLAMIDE 250 MG TAB PO SCH (09:00)
[2019-09-26] MEDS ORDERED: lamoTRIgine 100 MG TAB PO SCH (09:00)
[2019-09-26] MEDS ORDERED: clonazePAM 0.5 MG TABLET PO SCH (09:00)
[2019-09-26] MEDS ORDERED: Topiramate 25 MG TAB PO SCH (09:00)
[2019-09-26] MEDS ORDERED: Non-Formulary Item 1 EACH (Lamotrigine [Lamotrigine] 200 MG) PO SCH (09:00)
[2019-09-26] MEDS ORDERED: Potassium Gluconate [Potassium] 99 MG PO SCH (09:00)
[2019-09-26] MEDS: Senokot S 8.6-50 MG TAB PO SCH (09:29)
[2019-09-26] MEDS ORDERED: Prazosin HCl 1 MG CAP PO SCH (21:00)
[2019-09-26] MEDS ORDERED: Aripiprazole 15 MG TAB PO SCH (21:00)
--- NOTE | 2019-09-27 13:50 | DIS ---
DATE OF ADMISSION: 09/25/2019 DATE OF DISCHARGE: 09/26/2019 RESIDENT: Alondra Goff MD. ADMITTING ATTENDING: Nacho Ware MD. DISCHARGE ATTENDING: Nacho Ware MD CONSULT: None. PROCEDURE: Brain CT. RESULTS: No acute intracranial abnormality. PRIMARY DIAGNOSIS: Migraine headache. SECONDARY DIAGNOSES: 1. Acute kidney injury. 2. Attention deficit hyperactivity disorder. 3. Bipolar disorder. 4. Posttraumatic stress disorder. 5. Tobacco use disorder. DISCHARGE MEDICATIONS: Resume home medications. 1. Aripiprazole 15 mg. 2. Buprenorphine/naloxone. 3. Clonazepam 2 mg. 4. Lamotrigine 200 mg. 5. Prazosin 2 mg. 6. Tylenol 650 mg. 7. Diamox 250 mg. 8. Sumatriptan 50 mg. 9. Topiramate 50 mg. DISCONTINUED MEDICATIONS: None. HISTORY OF PRESENT ILLNESS/HOSPITAL COURSE: Ms. Anthony is a 39-year-old female who presented with a complaint of migraine headache for the past two weeks. She has been seen in the ER and in other hospitals several times with headaches during these two weeks, and nothing helped to resolve it. She was admitted to the medical observation floor and given a migraine cocktail as well as a dose of Haldol, which seem to improve her headaches significantly. On the day of discharge, she was headache free and feeling much better. DISPOSITION: Stable. DISCHARGE INSTRUCTIONS: Location: Home. Diet: Regular. Activity: Ad faiza. Follow up with primary care provider, Dr. Tee within 1 week. Job ID: [id number]
== END 2019-09-26 12:28 | disposition home or self-care (01) ==
LOC: ERS 00:28 → 2SW 06:09
PROVIDERS: ADMIT Family Medicine; ATTEND Family Medicine
DX: G43.919 Migraine, unspecified, intractable, without status migrainosus (principal); N17.9 Acute kidney failure, unspecified; F90.9 Attention-deficit hyperactivity disorder, unspecified type; F31.9 Bipolar disorder, unspecified; F43.10 Post-traumatic stress disorder, unspecified; F17.210 Nicotine dependence, cigarettes, uncomplicated; G89.29 Other chronic pain; M54.2 Cervicalgia; M54.9 Dorsalgia, unspecified; D72.829 Elevated white blood cell count, unspecified; Z79.899 Other long term (current) drug therapy; Z88.2 Allergy status to sulfonamides
CPT/HCPCS: 36415; 70450; 80053; 85025; 96361; 96365; 96367; 96375; G0378; J1100; J1200; J1630; J1885; J2405; J2765; J3475

== ENCOUNTER 2020-02-11 18:22 | Emergency (ER) | payer BC, SELFPAY ==
[~2020-02-11 18:22] MED LIST: Iopamidol-370 76% 500 ML 1 ML ONE
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
[2020-02-11] MEDS ORDERED: Morphine 4 MG/ML VIAL ONE (19:38)
== END 2020-02-11 21:29 | disposition home or self-care (01) ==
LOC: ERS 18:22
DX: S16.1XXA Strain of muscle, fascia and tendon at neck level, initial encounter (principal); R10.31 Right lower quadrant pain; M54.5 Low back pain; F31.9 Bipolar disorder, unspecified; F90.9 Attention-deficit hyperactivity disorder, unspecified type; F43.10 Post-traumatic stress disorder, unspecified; G43.909 Migraine, unspecified, not intractable, without status migrainosus; F17.210 Nicotine dependence, cigarettes, uncomplicated; Z79.899 Other long term (current) drug therapy; V89.2XXA Person injured in unspecified motor-vehicle accident, traffic, initial encounter
CPT/HCPCS: 70450; 71260; 72125; 74177; 96374; G0390; J2270; Q9967

== ENCOUNTER 2020-07-17 01:50 | Emergency (ER) | payer BC ==
[2020-07-17] MEDS ORDERED: Ketorolac Tromethamine 30 MG/ML VIAL ONE (02:29)
[2020-07-17 02:37] LABS: #Basophils 0.1 thou/uL (0.0-0.2); #Eosinphils 0.2 thou/uL (0.0-0.7); #Lymphocytes 2.6 thou/uL (1.20-3.40); #Monocytes 0.5 thou/uL (0.11-0.59); #Neutrophils 4.4 thou/uL (1.40-6.50); %Basophils 0.8 % (0.0-1.0); %Eosinophils 2.8 % (0.0-10.0); %Lymphocytes 33.8 % (21.0-51.0); %Monocytes 5.8 % (0.0-10.0); %Neutrophils 56.7 % (42.0-75.0); Hemoglobin 15.8 g/dL (12.0-16.0); Mean Corpuscular HGB CONC 33.8 g/dL (32.0-36.0); Mean Corpuscular Hemoglobin 29.9 pg (27.0-31.0); Mean Corpuscular Volume 88.6 fL (78.0-98.0); Mean Platelet Volume 6.4 fL (7.4-10.4); Platelet Count 246 thou/uL (130-400); RBC Distribution Width 11.2 % (11.5-14.5); Red Blood Cell (RBC) Count 5.27 mill/uL (4.20-5.40); White Blood Cell (WBC) Count 7.8 thou/uL (4.8-10.8)
[2020-07-17] MEDS ORDERED: traMADol HCl 50 MG TAB ONE (02:54)
[2020-07-17 03:01] LABS: BHCG - Serum Negative (NEGATIVE); Pregs Control Background? CLEAR/WHITE (CLR/WHITE); Pregs Control Bar Appear? YES (CONTROL BAR)
[2020-07-17 03:08] LABS: ALT (SGPT) 22 U/L (8-55); AST (SGOT) 17 U/L (5-34); Albumin 4.2 g/dL (3.5-5.0); Alkaline Phosphatase 48 U/L (40-110); Anion Gap 14 mmol/L (10-20); BUN (Urea Nitrogen) 13 mg/dL (7.0-18.7); Bilirubin, Total 0.3 mg/dL (0.2-1.2); Calc. Creatinine Clearance 0 mL/min (70-130); Calcium 9.2 mg/dL (7.8-10.44); Carbon Dioxide 21 mmol/L (22-29); Chloride 107 mmol/L (98-107); Globulin 2.6 g/dL (2.4-3.5); Glucose 95 mg/dL (70-105); Potassium 3.8 mmol/L (3.5-5.1); Protein, Total 6.8 g/dL (6.0-8.3); Sodium 138 mmol/L (136-145)
--- NOTE | 2020-07-17 07:53 | ULT ---
PRELIMINARY REPORT/[facility]/EMERGENCY AFTER HOURS PROCEDURE: EXAM: US Pelvis, Complete. CLINICAL HISTORY: HX: LLQ PAIN, HX OF HYSTERECTOMY. TECHNIQUE: Transvaginal and transabdominal pelvic ultrasound (complete) with image documentation. COMPARISON: None provided. FINDINGS: UTERUS/CERVIX: Surgically absent RIGHT OVARY: Normal follicles. No adnexal mass. Normal blood flow. Measures 2.7 x 1.9 x 3.0 cm and d emonstrates 2 cysts measuring 1.4 x 1.2 x 1.0 cm and 1.0 x 0.8 x 0.8 cm LEFT OVARY: Normal follicles. No adnexal mass. Normal blood flow. Measures 2.6 x 3.3 x 2.2 cm and de monstrates a 1.8 x 1.4 x 1.3 cm cyst FREE FLUID: Mild free fluid. IMPRESSION: Prior hysterectomy with no acute process ELECTRONICALLY SIGNED BY: Cuong Acosta MD Jul 17, 2020 2:58:56 AM CLERICAL WAREHOUSE WORKER FINAL REPORT ULTRASOUND PELVIC TRANSVAGINAL: History: Pelvic pain. Comparison: Reference is made to abdomen pelvis CT July 09, 2020. Findings/impression: Concordant with the initial report. Transcribed Date/Time: 07/17/2020 7:56 AM
== END 2020-07-17 03:12 | disposition home or self-care (01) ==
LOC: ERS 01:50
DX: N83.202 Unspecified ovarian cyst, left side (principal); Z79.899 Other long term (current) drug therapy; G43.909 Migraine, unspecified, not intractable, without status migrainosus; F17.210 Nicotine dependence, cigarettes, uncomplicated
CPT/HCPCS: 76856; 80053; 84703; 85025; 96374; J1885